=== PATIENT | male | born 1955 | race Caucasian/White ===

== ENCOUNTER 2019-07-30 09:32 | Day surgery (SDC) | payer MEDICARE ==
[2019-07-27 09:20] VITALS: BMI 27.2
[~2019-07-30 09:32] MED LIST: Lidocaine 1% PF 5 ML VIAL ONE
[2019-07-30] MEDS ORDERED: PROPOFOL 200 MG/20 ML VIAL ONE (13:40)
--- NOTE | 2019-07-30 14:10 | MRI ---
EXAM: MRI Thoracic Spine WO Con PROVIDED CLINICAL HISTORY: Intervertebral disorders with radiculopathy, thoracic region. COMPARISON: None FINDINGS: There is a slightly heterogeneous lesion seen within the T10 vertebral body measuring 2.8 cm which de monstrates characteristics which are most suggestive of a hemangioma. There are scattered Schmorl's nodes seen within the thoracic spine greatest involving the endplates at the T7-8 and T8-9 levels. No rmal signal intensity is otherwise demonstrated in the bone marrow. There is a small disc bulge with central disc protrusion at the T7-8 level which narrows the ventral subarachnoid space and results in flattening of the anterior aspect of the thoracic spinal cord at this level. However, there is normal signal intensity in the spinal cord at this level, and the neura l foramina are patent at this level. No additional intradural or extradural defect is seen involving the thoracic spine, and the central s loly canal and neural foramina at the remaining levels of the thoracic spine are patent. The paravertebral soft tissues have a normal appearance and signal intensity. IMPRESSION: 1. Disc degenerative changes at the T7-8 level which results in narrowing of the ventral subarachnoid space and mild flattening of the spinal cord at this level. Central spinal canal and neural foramina are otherwise patent throughout the thoracic spine. 2. Endplate degenerative changes and prominent Schmorl's nodes at the T7-8 level.
--- NOTE | 2019-07-30 14:23 | MRI ---
MRI Lumbar Spine Noncontrast: HISTORY: Intervertebral disc disorders with radiculopathy. Patient claims of lower back pain and pain around w aist. History of gastric cancer. COMPARISON: None FINDINGS: There are increased T2-weighted signal intensity structures in the renal sinus fat bilaterally likely due to parapelvic renal cysts. A few subcentimeter increased T2-weighted signal intensity foci are seen in the inferior pole right kidney which are difficult to characterize but also statistically lik martha represent tiny cysts. Conus medullaris is normal in morphology and terminates at the L1 level. Normal signal intensity is demonstrated in the bone marrow. L1-2: There is no disc bulge or disc herniation. Central spinal canal and neural foramina are patent. Mild facet degenerative changes are present. L2-3: There is a minimal disc osteophyte complex and facet hypertrophic changes. Findings result in m ild narrowing of the central spinal canal. The neural foramina are patent. L3-4: There is a small right foraminal disc protrusion. There are facet hypertrophic changes and liga mentous thickening. Findings result in mild narrowing of the central spinal canal with mild right-sided neural foraminal narrowing. L4-5: There is a mild disc osteophyte complex with central and left paracentral disc protrusion. Face t hypertrophic changes and ligamentous thickening are present. Findings result in moderate narrowing of the central spinal canal with mild bilateral neural foraminal narrowing. L5-S1: Facet hypertrophic changes are noted. There is no significant disc bulge or disc herniation. C entral spinal canal and neural foramina are patent. IMPRESSION: 1. Degenerative changes in the lumbar spine as described above. There is moderate narrowing of the ce ntral spinal canal at the L4-5 level. 2. Findings likely attributable to bilateral renal parapelvic cysts with probable tiny inferior pole right renal cysts.
[2019-07-30] MEDS ORDERED: HYDROcodone/Acetaminophen 5/325 mg Tablet ONE (14:50)
== END 2019-07-30 15:49 | disposition home or self-care (01) ==
LOC: SDC/OP 09:32
PROVIDERS: ATTEND Specialist
DX: M51.14 Intervertebral disc disorders with radiculopathy, thoracic region (principal); M51.16 Intervertebral disc disorders with radiculopathy, lumbar region; Z79.899 Other long term (current) drug therapy
CPT/HCPCS: 72146; 72148; J2001